=== PATIENT | male | born 1955 | race Caucasian/White ===

== ENCOUNTER 2020-11-16 08:14 | Emergency (ER) | payer BC, SELFPAY ==
[2020-11-16] VITALS (27 sets, daily range): BP systolic 132–185; BP diastolic 77–90; PULSE 62–79; RESP 11–20; TEMP 36.3; O2SAT 96–100
--- NOTE | ~2020-11-16 | XR_ITS ---
EXAMINATION: XR chest 1V portable DATE: 11/16/2020 10:23 INDICATION: Chest pain. Mid chest discomfort with deep inspiration. TECHNIQUE: frontal view of the chest was obtained. COMPARISON: None FINDINGS: The lungs are clear with no focal airspace opacities, pulmonary edema, pleural effusion or pneumothor ax. The cardiomediastinal silhouette is normal. Mild thoracic spondylosis. Resection of the lateral r ight clavicle. IMPRESSION: 1. No acute cardiopulmonary disease. Reviewed, dictated and finalized at location A.
--- NOTE | ~2020-11-16 | CT_ITS ---
EXAMINATION: CT brain wo con DATE: 11/16/2020 10:38 INDICATION: Dizziness TECHNIQUE: Computed tomography (CT) of the head was performed without intravenous contrast. Sagittal and coronal reconstructions were performed. The mA was adjusted according to patient size. Iterative reconstruction technique was employed. The dose-length product was 605.33 mGy-cm. COMPARISON: None FINDINGS: No acute intracranial hemorrhage, acute infarction or abnormal extra axial fluid collection. Small ol d lacunar infarct at the left lentiform nucleus and subinsular white matter. There is minimal scatter ed white matter hypoattenuation consistent with chronic small vessel ischemic disease. Ventricles are normal and symmetric. No mass/mass effect. Mucous retention cyst in the left maxillary sinus. The or bits and mastoid air cells are normal. IMPRESSION: 1. No acute intracranial process. 2. Small old lacunar infarct at the left lentiform nucleus and subinsular white matter. Reviewed, dictated and finalized at location A.
[2020-11-16 09:10] LABS: Basophils Absolute Auto 0.1 K/mm3 (0.0-0.1); Basophils Percent Auto 0.9 % (0.2-1.2); Eosinophils Absolute Auto 0.3 K/mm3 (0-0.3); Hematocrit 43.2 % (42.0-52.0); Hemoglobin 14.8 g/dL (14.0-18.0); Immature Granulocyte Absolute 0.01 K/mm3 (0.00-0.031); Immature Granulocyte Percent A 0.2 % (0-0.5); Lymphocytes Absolute Auto 1.92 K/mm3 (0.9-3.2); Lymphocytes Percent Auto 29.4 % (18.3-44.2); Mean Corpuscular HGB Conc 34.3 g/dl (32-36); Mean Corpuscular Hemoglobin 31.6 pg (26-34); Mean Corpuscular Volume 92.3 fl (80-100); Mean Platelet Volume 9.5 fl (7.4-10.4); Monocytes Absolute Auto 0.7 K/mm3 (0.1-0.6); Monocytes Percent Auto 10.7 % (2.6-8.5); Neutrophils Absolute Auto 3.6 K/mm3 (1.3-6.7); Neutrophils Percent Auto 54.8 % (45.5-73.1); Platelet Count Result 261 k/mm3 (150-375); Red Blood Count 4.68 M/mm3 (4.6-6.20); Red Cell Distribution Width 12.8 % (11.5-14.5); White Blood Count 6.5 K/mm3 (4.5-10.0)
[2020-11-16 09:11] LABS: Add Urine Microscopic? NO; Appearance Urine Clear (Clear); Bilirubin Urine Negative (Negative); Blood Urine Negative (Negative); Color Urine Yellow (Yellow); Glucose Urine UA Negative (Negative); Ketones Urine Negative (Negative); Leukocyte Esterase Ur Negative LEU/UL (Negative); Nitrate Urine Negative (Negative); Protein Urine Negative (Negative); Specific Grav Ur 1.016 (1.001-1.035); Urobilinogen Urine Negative mg/dL (<2.0)
[2020-11-16 09:21] LABS: Anion Gap 7 mmol/L (8-16); Blood Urea Nitrogen 17 mg/dL (9-20); Calcium 9.8 mg/dL (8.4-10.2); Carbon Dioxide 32 mmol/L (22-30); Chloride 99 mmol/L (98-107); Estimated CRCL calculation 78 ml/min; Estimated Glomerular Filt Rate > 60; Glucose 191 mg/dL (75-110); Potassium 4.1 mmol/L (3.4-5.0); Sodium 138 mmol/L (137-145)
--- NOTE | 2020-11-16 09:59 | ECG_ITS ---
Measurements Intervals [place] Rate: 63 P: 48 WI: 202 QRS: 32 QRSD: 154 T: 74 QT: 387 QTc: 398 Interpretive Statements SINUS RHYTHM BORDERLINE AV CONDUCTION DELAY RIGHT BUNDLE BRANCH BLOCK BASELINE WANDER- V4 ABNORMAL ECG Electronically Signed On 11-16-2020 10:07:02 CDT by Mike Mares D.O.
[2020-11-16 10:24] LABS: Troponin I < 0.012 ng/mL (0.000-0.034)
--- NOTE | 2020-11-16 10:27 | ED.GENADULT ---
HPI - General Adult General Chief complaint: Recheck/Abnormal Lab/Rx Stated complaint: HIGH BLOOD SUGAR Time Seen by Provider: 11/16/20 08:42 Source: patient History of Present Illness HPI narrative: Patient is a 65 y/o male complaining of mild dizziness this morning. He describes his dizziness as a light-headed sensation. He denies feeling room spinning. There is no alleviating or exacerbating factor. He also had some chest pressure rated as 1/10 this morning. However, he has no chest pressure at this time. He checked his BS and it was in 180s. He also feels shaky. Related Data Home Medications Medication Instructions Recorded Confirmed atorvastatin 40 mg PO DAILY 11/16/20 11/16/20 lisinopril-hydrochlorothiazide 1 tablet PO DAILY 11/16/20 11/16/20 metformin 1,000 mg PO BID 11/16/20 11/16/20 pioglitazone 15 mg PO DAILY 11/16/20 11/16/20 vitamin B complex [B 1 tablet PO DAILY 11/16/20 11/16/20 Complex-Vitamin B12] Allergies Allergy/AdvReac Type Severity Reaction Status Date / Time No Known Allergies Allergy Verified 11/16/20 08:19 Review of Systems Constitutional: Constitutional: Denies chills, Denies fever(s), Denies headache(s) and Denies weakness Eyes: Eyes: Denies blurry vision ENT: Denies headache(s) and Denies neck pain Cardiovascular: Cardiovascular: Reports chest pain and Denies dyspnea Respiratory: Respiratory: Denies cough and Denies dyspnea Gastrointestinal: Gastrointestinal: Denies abdominal pain, Denies diarrhea, Denies nausea and Denies vomiting Genitourinary: Genitourinary: Denies hematuria and Denies dysuria Musculoskeletal: Musculoskeletal: Denies back pain and Denies neck pain Neurologic: Reports dizziness, Denies headache(s) and Denies weakness [facility] Social History Social History Gender identity (if verbalized by the patient): Male Exam Const: General: no acute distress and well developed Orientation/consciousness: oriented to person, oriented to place, oriented to time and patient oriented x3 HENMT: Head: normocephalic Ears: external ears normal General nose exam: Normal external nose present Eyes: General: appearance normal, both eyes and all related structures Conjunctivae: conjunctivae normal Neck: Neck: normal visual inspection and full ROM Chest: Chest palpation & inspection: normal inspection of the chest and no tenderness Resp: Effort & Inspection: normal respiratory effort Auscultation: clear to auscultation bilaterally Cardio: Rate: regular rate Rhythm: regular rhythm GI: GI Palp: No abdominal tenderness and Yes Soft to palpation Skin: General skin exam: normal color and turgor normal Neuro: General: oriented to person, oriented to place, oriented to time and patient oriented x3 Cognition (Neuro): normal cognition Extrem: General: normal to inspection, full ROM and no pedal edema Psych: Appearance: grossly normal Mental Status: mental status grossly normal Affect: normal affect Course Reevaluation(s) Reevaluation #1: Rechecked. Patient feels well. He has no chest pressure or dizziness at this time. Discussed with patient about test results including CT findings suggesting previous lacunar infarct. Instructed patient take Aspirin daily. Date: 11/16/20 Time: 14:08 Vital Signs Vital signs: Vital Signs Temperature 36.3 C L 11/16/20 08:17 Pulse Rate 79 11/16/20 08:17 Respiratory Rate 20 11/16/20 08:17 Blood Pressure 185/90 H 11/16/20 08:17 Pulse Oximetry 100 11/16/20 08:17 Temperature 36.3 C L 11/16/20 08:17 Pulse Rate 78 11/16/20 14:21 Respiratory Rate 18 11/16/20 14:21 Blood Pressure 132/78 11/16/20 14:21 Pulse Oximetry 99 11/16/20 14:21 Medical Decision Making Vital Signs Vital Signs: Vital Signs Temperature 36.3 C L 11/16/20 08:17 Pulse Rate 79 11/16/20 08:17 Respiratory Rate 20 11/16/20 08:17 Blood Pressure 185/90 H 11/16/20 08:17 Pulse O
[2020-11-16 13:46] LABS: Troponin I < 0.012 ng/mL (0.000-0.034)
== END 2020-11-16 14:22 | disposition home or self-care (01) ==
PROVIDERS: Emergency Provider Emergency Medicine; PCP Internal Medicine
DX: R42 Dizziness and giddiness (principal); E11.65 Type 2 diabetes mellitus with hyperglycemia; R07.9 Chest pain, unspecified; Z79.84 Long term (current) use of oral hypoglycemic drugs
CPT/HCPCS: 36415; 70450; 71045; 80048; 81003; 84484; 85025; 93005; 99284

== ENCOUNTER 2022-01-18 14:00 | Outpatient (CLI) | payer MEDICARE, SELFPAY | END 2022-01-18 14:01 | disposition home or self-care (01) | LOC: ANHAUDASC 14:00 | PROVIDERS: PCP Internal Medicine; Visit Provider Otolaryngology | DX: H93.13 Tinnitus, bilateral (principal); H90.3 Sensorineural hearing loss, bilateral | CPT/HCPCS: 92557; 92567 ==